=== PATIENT | male | born 1990 | race African-American/Black ===

== ENCOUNTER 2022-09-13 12:37 | Emergency (ER) | payer OTHER ==
[~2022-09-13] VITALS: Ht 185.4 cm; Wt 103.0 kg
[2022-09-13 12:46] VITALS: BP 130/90; RESP 18; TEMP 98.6; O2SAT 98
[2022-09-13 12:48] VITALS: PULSE 98
[2022-09-13] MEDS ORDERED: BO1 TP (14:12)
[2022-09-13] MEDS ORDERED: IBUP-2029 PO (14:12)
[2022-09-13] MEDS ORDERED: BACITRACIN ZINC OINT UDPKT TOP NR (14:15)
== END 2022-09-13 15:03 | disposition home or self-care (01) ==
LOC: ER 12:53
DX: S61.011A Laceration without foreign body of right thumb without damage to nail, initial encounter (principal); W01.0XXA Fall on same level from slipping, tripping and stumbling without subsequent striking against object, initial encounter; Y93.89 Activity, other specified; Y92.89 Other specified places as the place of occurrence of the external cause; Y99.8 Other external cause status
CPT/HCPCS: 73130; 99283